=== PATIENT | female | born 1990 | race American Indian/Alaskan Native ===

== ENCOUNTER 2020-10-02 18:24 | Emergency (ER) | payer SELFPAY ==
[2020-10-02 18:29] VITALS: BP 149/98
== END 2020-10-02 21:36 | disposition left against medical advice (07) ==
LOC: ED 18:24
DX: Z53.21 Procedure and treatment not carried out due to patient leaving prior to being seen by health care provider (principal)

== ENCOUNTER 2020-10-03 10:24 | Emergency (ER) | payer SELFPAY ==
[2020-10-03 10:46] VITALS: BP 144/87
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
== END 2020-10-03 12:15 | disposition home or self-care (01) ==
LOC: ED 10:24
DX: S16.1XXA Strain of muscle, fascia and tendon at neck level, initial encounter (principal); S39.012A Strain of muscle, fascia and tendon of lower back, initial encounter; S86.912A Strain of unspecified muscle(s) and tendon(s) at lower leg level, left leg, initial encounter; F12.10 Cannabis abuse, uncomplicated; Z79.899 Other long term (current) drug therapy; V49.49XA Driver injured in collision with other motor vehicles in traffic accident, initial encounter; Y93.89 Activity, other specified; Y92.488 Other paved roadways as the place of occurrence of the external cause; Y99.8 Other external cause status
CPT/HCPCS: 99282